=== PATIENT | female | born 1945 | race African-American/Black ===

== ENCOUNTER 2017-05-28 03:34 | Inpatient (IN) | payer MEDICARE ==
[2017-05-28] VITALS (26 sets, daily range): BP systolic 129–169; BP diastolic 53–79
[~2017-05-28] VITALS: Ht 167.6 cm; Wt 76.2 kg
[2017-05-28] MEDS ORDERED: MORPHINE SULFATE 4 MG/ML CPJ (NOT FOR IM USE) IV ONE (04:15)
[2017-05-28] MEDS ORDERED: BACITRACIN ZINC OINT UDPKT TOP ONE (04:15)
[2017-05-28] MEDS ORDERED: LIDOCAINE HCL 1% 20ML VIAL (Pyxis) INJ MC ONE (04:15)
[2017-05-28] MEDS ORDERED: TETANUS, DIPHTHERIA, PERTUSSIS VAC/PF 0.5ML (>7YR OLD) IM ONE (04:15)
[2017-05-28] MEDS ORDERED: ONDANSETRON HCL 4MG/2ML VIAL IV ONE (04:15)
[2017-05-28 04:24] LABS: BASOPHILS % 0.4 % (0.0-2.0); EOSINOPHILS % 2.8 % (0.0-5.0); HEMATOCRIT. 37.5 % (36.0-48.0); HEMOGLOBIN. 12.7 g/dL (12.0-16.0); LYMPHOCYTES % 22.1 % (20.0-50.0); MEAN CORPUSCULAR HEMOGLOBIN 26.2 pg (28.0-32.0); MEAN CORPUSCULAR VOLUME 77.6 fL (81.0-99.0); MEAN PLATELET VOLUME 9.1 fl (7.4-10.4); MONOCYTES % 8.5 % (2.0-8.0); NEUTROPHILS % 66.2 % (40.0-76.0); PLATELET 211 x1000/uL (130-400); RED BLOOD CELL COUNT 4.83 mill/uL (4.2-5.4); RED CELL DISTRIBUTION WIDTH 14.3 % (11.6-14.6)
[2017-05-28 04:32] LABS: PROTHROMBIN TIME 10.2 sec (9.4-11.6)
[2017-05-28 04:36] LABS: CHLORIDE 106 mEq/L (98-107)
[2017-05-28] MEDS ORDERED: PHENYTOIN SODIUM 500 MG in SODIUM CHLORIDE 0.9% 50 ML IV ONE (05:45)
[2017-05-28] MEDS ORDERED: NA PHOS,M-B/NA PHOS,DI-BA ENEMA 118ML PR PRN (11:00)
[2017-05-28] MEDS ORDERED: NICARDIPINE 50 MG in SODIUM CHLORIDE 0.9% 230 ML IV PRN (11:00)
[2017-05-28] MEDS ORDERED: LORAZEPAM 2MG/ML CPJ IV PRN (11:00)
[2017-05-28] MEDS ORDERED: ONDANSETRON HCL 4MG/2ML VIAL IV PRN (11:00)
[2017-05-28] MEDS ORDERED: DIPHENHYDRAMINE 50MG/ML VIAL IV PRN (11:00)
[2017-05-28] MEDS ORDERED: IPRATROPIUM/ALBUTEROL 0.5-3(2.5)MG/3ML NEB INH PRN (11:00)
[2017-05-28] MEDS: DEXT 5%/LACTATED RINGERS 1,000 ML IV SCH (11:40)
[2017-05-28] MEDS: PANTOPRAZOLE SODIUM 40 MG/VIAL IV SCH (12:28)
[2017-05-28] MEDS ORDERED: DEXTROSE 50% WATER 50ML SYRINGE IV PRN (12:45)
[2017-05-28] MEDS: PHENYTOIN SODIUM 100MG/2ML VIAL IV SCH ×2 (14:10→21:59)
[2017-05-28] MEDS: BLOOD SUGAR DIAGNOSTIC STRIP TEST SCH ×2 (16:30→21:57)
[2017-05-28] MEDS ORDERED: INFLUENZA VIRUS VACCINE 0.5ML SYR IM ONE (17:00)
[2017-05-28] MEDS: INSULIN LISPRO 100 UNITS/ML SUBCUT SCH ×2 (18:02→22:00)
[2017-05-28] MEDS ORDERED: MORPHINE SULFATE 4 MG/ML CPJ (NOT FOR IM USE) IV PRN (18:30)
[2017-05-29] VITALS (40 sets, daily range): BP systolic 121–149; BP diastolic 60–78
[2017-05-29] MEDS: DEXT 5%/LACTATED RINGERS 1,000 ML IV SCH (04:18)
[2017-05-29] MEDS: PHENYTOIN SODIUM 100MG/2ML VIAL IV SCH (05:09)
[2017-05-29] MEDS: BLOOD SUGAR DIAGNOSTIC STRIP TEST SCH ×4 (05:34→21:07)
[2017-05-29] MEDS ORDERED: NICARDIPINE 100 MG in SODIUM CHLORIDE 0.9% 60 ML IV PRN (06:00)
[2017-05-29] MEDS: INSULIN LISPRO 100 UNITS/ML SUBCUT SCH ×4 (06:18→21:11)
[2017-05-29] MEDS: PANTOPRAZOLE SODIUM 40 MG/VIAL IV SCH (09:49)
[2017-05-29] MEDS: PHENYTOIN SODIUM EXTENDED 100MG CAPSULE PO SCH ×2 (13:55→21:11)
[2017-05-29] MEDS ORDERED: INFLUENZA VIRUS VACCINE 0.5ML SYR IM ONE (23:00)
[2017-05-30] VITALS (16 sets, daily range): BP systolic 98–134; BP diastolic 55–75
[2017-05-30] MEDS: BLOOD SUGAR DIAGNOSTIC STRIP TEST SCH ×4 (06:10→20:30)
[2017-05-30] MEDS: INSULIN LISPRO 100 UNITS/ML SUBCUT SCH ×4 (06:17→20:29)
[2017-05-30] MEDS: PHENYTOIN SODIUM EXTENDED 100MG CAPSULE PO SCH ×3 (06:17→22:07)
[2017-05-30] MEDS: FAMOTIDINE 20MG/2ML VIAL IV SCH ×3 (08:10→20:35)
[2017-05-30] MEDS: ATORVASTATIN CALCIUM 40MG TABLET PO SCH (20:27)
[2017-05-30] MEDS: INSULIN GLARGINE UD 100 UNITS/ML SYR SUBCUT SCH (22:07)
[2017-05-31] VITALS: BP 120/58
[2017-05-31 04:00] VITALS: BP 111/52
[2017-05-31] MEDS: PHENYTOIN SODIUM EXTENDED 100MG CAPSULE PO SCH ×3 (05:52→21:28)
[2017-05-31] MEDS: BLOOD SUGAR DIAGNOSTIC STRIP TEST SCH ×4 (05:52→21:00)
[2017-05-31] MEDS: INSULIN LISPRO 100 UNITS/ML SUBCUT SCH ×4 (06:18→21:00)
[2017-05-31 08:00] VITALS: BP 104/56
[2017-05-31] MEDS ORDERED: ASPIRIN 81MG EC TABLET PO SCH (09:00)
[2017-05-31] MEDS: FAMOTIDINE 20MG/2ML VIAL IV SCH ×2 (09:01→21:27)
[2017-05-31 12:00] VITALS: BP 111/64
[2017-05-31 12:48] LABS: ETHANOL BLOOD < 10 mg/dL
[2017-05-31 13:00] LABS: HDL CHOLESTEROL 52 mg/dL (40-59); LDL CHOLESTEROL 72 mg/dL (5-100); T4 FREE 1.01 ng/dL (0.76-1.46)
[2017-05-31 16:00] VITALS: BP 114/71
[2017-05-31 19:20] LABS: VITAMIN B12 SERUM 1537 pg/mL (211-911)
[2017-05-31 19:21] LABS: FOLIC ACID (FOLATE) SERUM > 20.00 ng/mL (>5.38)
[2017-05-31 20:00] VITALS: BP 109/48
[2017-05-31] MEDS: ATORVASTATIN CALCIUM 40MG TABLET PO SCH (21:27)
[2017-05-31] MEDS: INSULIN GLARGINE UD 100 UNITS/ML SYR SUBCUT SCH (22:51)
[2017-06-01] VITALS: BP 100/49
[2017-06-01 04:00] VITALS: BP 119/52
[2017-06-01] MEDS: BLOOD SUGAR DIAGNOSTIC STRIP TEST SCH ×4 (06:45→21:46)
[2017-06-01] MEDS: INSULIN LISPRO 100 UNITS/ML SUBCUT SCH ×4 (07:15→21:55)
[2017-06-01] MEDS: PHENYTOIN SODIUM EXTENDED 100MG CAPSULE PO SCH ×3 (07:59→21:12)
[2017-06-01 08:00] VITALS: BP 105/60
[2017-06-01] MEDS: FAMOTIDINE 20MG/2ML VIAL IV SCH ×2 (08:36→21:12)
[2017-06-01 12:00] VITALS: BP 117/70
[2017-06-01 16:00] VITALS: BP 119/51
[2017-06-01 20:00] VITALS: BP 108/52
[2017-06-01] MEDS: ATORVASTATIN CALCIUM 40MG TABLET PO SCH (21:12)
[2017-06-01] MEDS: INSULIN GLARGINE UD 100 UNITS/ML SYR SUBCUT SCH (21:55)
[2017-06-02] VITALS: BP 104/53
[2017-06-02 04:00] VITALS: BP 115/59
[2017-06-02] MEDS: PHENYTOIN SODIUM EXTENDED 100MG CAPSULE PO SCH ×3 (05:33→21:55)
[2017-06-02] MEDS: BLOOD SUGAR DIAGNOSTIC STRIP TEST SCH ×4 (06:29→21:15)
[2017-06-02] MEDS: INSULIN LISPRO 100 UNITS/ML SUBCUT SCH ×4 (06:33→21:23)
[2017-06-02 08:00] VITALS: BP 126/65
[2017-06-02] MEDS: ASPIRIN 81MG EC TABLET PO SCH (10:07)
[2017-06-02] MEDS: FAMOTIDINE 20MG/2ML VIAL IV SCH ×2 (10:08→21:09)
[2017-06-02 12:00] VITALS: BP 116/71
[2017-06-02] MEDS ORDERED: NA PHOS,M-B/NA PHOS,DI-BA ENEMA 118ML PR NR (15:15)
[2017-06-02 16:00] VITALS: BP 113/72
[2017-06-02] MEDS: DOCUSATE SODIUM 100MG CAPSULE PO SCH (17:02)
[2017-06-02] MEDS: LACTULOSE 20G/30ML UDC PO SCH ×2 (17:02→21:00)
[2017-06-02 20:00] VITALS: BP 131/70
[2017-06-02] MEDS ORDERED: POLYETHYLENE GLYCOL 3350 (17GM) 1 DOSE PACK PO SCH (21:00)
[2017-06-02] MEDS: ATORVASTATIN CALCIUM 40MG TABLET PO SCH (21:09)
[2017-06-02] MEDS: INSULIN GLARGINE UD 100 UNITS/ML SYR SUBCUT SCH (22:06)
[2017-06-03] VITALS: BP 125/72
[2017-06-03 04:00] VITALS: BP 125/68
[2017-06-03] MEDS: PHENYTOIN SODIUM EXTENDED 100MG CAPSULE PO SCH ×2 (06:41→17:57)
[2017-06-03] MEDS: INSULIN LISPRO 100 UNITS/ML SUBCUT SCH ×3 (06:44→18:23)
[2017-06-03 07:27] LABS: BASOPHILS % 0.9 % (0.0-2.0); EOSINOPHILS % 2.8 % (0.0-5.0); HEMATOCRIT. 35.5 % (36.0-48.0); HEMOGLOBIN. 11.8 g/dL (12.0-16.0); LYMPHOCYTES % 27.5 % (20.0-50.0); MEAN CORPUSCULAR HEMOGLOBIN 25.7 pg (28.0-32.0); MEAN CORPUSCULAR VOLUME 77.6 fL (81.0-99.0); MEAN PLATELET VOLUME 8.9 fl (7.4-10.4); MONOCYTES % 7.3 % (2.0-8.0); NEUTROPHILS % 61.5 % (40.0-76.0); PLATELET 206 x1000/uL (130-400); RED BLOOD CELL COUNT 4.58 mill/uL (4.2-5.4); RED CELL DISTRIBUTION WIDTH 14.1 % (11.6-14.6)
[2017-06-03 07:36] VITALS: BP 105/53
[2017-06-03 08:15] LABS: CHLORIDE 107 mEq/L (98-107)
[2017-06-03] MEDS: LACTULOSE 20G/30ML UDC PO SCH (09:00)
[2017-06-03] MEDS: FAMOTIDINE 20MG/2ML VIAL IV SCH (10:10)
[2017-06-03] MEDS: ASPIRIN 81MG EC TABLET PO SCH (10:10)
[2017-06-03] MEDS: DOCUSATE SODIUM 100MG CAPSULE PO SCH ×2 (10:10→18:26)
[2017-06-03] MEDS: BLOOD SUGAR DIAGNOSTIC STRIP TEST SCH ×2 (11:45→16:45)
[2017-06-03 12:16] VITALS: BP 127/70
[2017-06-03 15:43] VITALS: BP 129/67
[2017-06-03 16:10] VITALS: BP 129/67
[2017-06-03] MEDS ORDERED: INFLUENZA VIRUS VACCINE 0.5ML SYR IM ONE (16:30)
== END 2017-06-03 18:30 | DRG 86 ==
LOC: ER 03:34 → EDBEDREQ 05:21 → EDBEDREQSVC 05:45 → MICUSO 05:45 → EDBEDREQ 05:48 → EDBEDREQTM 05:48 → ENRESERV 09:56 → 5WST 05-30 11:23
PROVIDERS: ADMIT Internal Medicine; ATTEND Internal Medicine
PROC: 0HQ0XZZ Repair Scalp Skin, External Approach (ICD-10-PCS; principal; 2017-05-28)
DX: S06.5X0A Traumatic subdural hemorrhage without loss of consciousness, initial encounter (principal); E44.0 Moderate protein-calorie malnutrition; E11.65 Type 2 diabetes mellitus with hyperglycemia; E78.00 Pure hypercholesterolemia, unspecified; I10 Essential (primary) hypertension; S01.01XA Laceration without foreign body of scalp, initial encounter; W18.39XA Other fall on same level, initial encounter; Y93.89 Activity, other specified; Y92.098 Other place in other non-institutional residence as the place of occurrence of the external cause; Y99.8 Other external cause status; Z68.27 Body mass index [BMI] 27.0-27.9, adult; Z79.4 Long term (current) use of insulin
CPT/HCPCS: 12002; 36415; 70450; 70551; 71045; 72125; 80048; 80053; 80061; 80185; 82607; 82746; 82962; 83036; 84439; 84443; 84481; 84484; 85025; 85610; 86850; 86900; 90471; 90686; 90715; 92523; 92610; 93005; 93306; 93880; 93970; 96374; 96375; 97116; 97162; 97166; 97530; 99285; A6261; C9113; G0482; J1165; J1815; J2270; J2405; J3490; J7050; J7121

== ENCOUNTER 2017-07-03 14:57 | Emergency (ER) | payer MEDICARE ==
[~2017-07-03] VITALS: Ht 160 cm; Wt 60.0 kg
[2017-07-03] MEDS ORDERED: HYDROCODONE/ACETAMINOPHEN 5/325MG TABLET PO ONE (17:45)
[2017-07-03 20:30] VITALS: BP 145/74
== END 2017-07-03 20:43 | disposition home or self-care (01) ==
LOC: ER 15:06
DX: S82.492A Other fracture of shaft of left fibula, initial encounter for closed fracture (principal); S82.55XA Nondisplaced fracture of medial malleolus of left tibia, initial encounter for closed fracture; S91.145A Puncture wound with foreign body of left lesser toe(s) without damage to nail, initial encounter; I10 Essential (primary) hypertension; E11.9 Type 2 diabetes mellitus without complications; X50.9XXA Other and unspecified overexertion or strenuous movements or postures, initial encounter; Y93.89 Activity, other specified; Y92.89 Other specified places as the place of occurrence of the external cause; Y99.8 Other external cause status
CPT/HCPCS: 29515; 73610; 73630; 99284